=== PATIENT | female | born 1945 | race Caucasian/White ===

== ENCOUNTER 2017-10-29 12:17 | Inpatient (IN) | payer MEDICARE, OTHER ==
--- NOTE | ~2017-10-29 | CN ---
PATIENT NAME:WAYNE PARRA MEDICAL RECORD: [id number] : 41 LOCATION:[id number] ADMIT DATE: 10/29/17 ACCOUNT: [id number] CONSULTING PHYSICIAN: CHRISTIE ALBERTO MD REFERRING PHYSICIAN: MONICA MONTANO MD DATE OF CONSULTATION: 10/30/2017 CONSULT REQUESTING PHYSICIAN: Monica Montano MD REASON FOR CONSULTATION: Right hilar mass, possible postobstructive pneumonia. HISTORY OF PRESENT ILLNESS: Ms. 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 She was treated at [facility] [facility]. She has a lesion on the right side and that was biopsied negative for the cancer, but it was consistent with fungal infection. She says that she was doing well since last January. After the of her , she is progressively losing weight and getting weaker and weaker. She was admitted 2 weeks ago, in the first week of October, at [facility]. Over there, she underwent bronchoscopy and she had needle biopsy as well as BAL. The cells reported negative for any malignancy, but the cytology was sent to the [facility] for further evaluation. Now, for the last few days, she has worsening shortness of breath. She also has some fever and chill. She was feeling very weak and lethargic and the patient was brought into the ER. On evaluation, she was found that she has elevated cardiac enzymes. She has lost about 20 pounds since January last year, after the of her . She was a smoker, she quit it 2-3 weeks ago. PAST MEDICAL HISTORY: 1. 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 2. COPD. 3. Chronic backache. 4. Weight loss. REVIEW OF THE SYSTEMS: As in history of present illness. PAST SURGICAL HISTORY: Nonsignificant. ALLERGIES: There are no known drug allergies. PRESENT MEDICATIONS: She is on albuterol/ipratropium nebulizer, Levaquin IV. Her other medications are reviewed. PERSONAL AND SOCIAL HISTORY: The patient was smoking until a month ago, almost a pack a day. She is nondrinker. FAMILY HISTORY: Noncontributory. PHYSICAL EXAMINATION: GENERAL: Now, the patient is lying comfortable in bed. She is not in acute distress. VITAL SIGNS: The blood pressure is 139/76, pulse is 82, respiration is 18, temperature is 98.2, SpO2 is 95% on 4 liters nasal cannula. HEENT: Conjunctivae are pink. Sclerae not icteric. NECK: Supple. No JVD. CHEST: The chest excursion is minimal on both sides, crackles at the right CONSULT REPORT [id number] WAYNE PARRA. No wheezing. HEART: Rhythm regular. Normal sound. No murmur. ABDOMEN: Abdomen is soft. Bowel sounds present. No hepatosplenomegaly. RECTAL: Deferred. EXTREMITIES: No cyanosis. No clubbing. No pedal edema. SKIN: The skin is warm. Normal turgor. CENTRAL NERVOUS SYSTEM: The patient is awake and alert. There are no obvious cranial nerve abnormalities. The patient is very frail. The pathology report from [facility] on 10/11/2017; there are benign bronchial epithelial cells that were negative for granulomas and negative for malignancy. The report was sent for second opinion to [facility]. Chest radiograph; there is right hilar lung mass. There is consolidation of the right mid lung. There is also multifocal atypical pneumonia and possible pulmonary edema with superimposed emphysematous changes. Nodular density in both lungs. IMPRESSION: 1. Right hilar mass. 2. Acute hypoxic respiratory failure. 3. Postobstructive pneumonia, also possible pneumonitis, possible pulmonary edema with abnormal chest radiograph. 4. Generalized debility. 5. Elevated cardiac enzyme. 6. COPD with acute exacerbation. 7. Weight loss. 8. Ex-smoker. RECOMMENDATIONS: 1. We will get the final biopsy report from [facility] when they get it from [facility]. 2. Antibiotic per Dr. Batista. 3. Albuterol/ipratropium nebulizer. 4. Brovana and budesonide nebulizer. 5. Dr. Lane and Dr. Nolasco have been already consulted. Dr. Montano, thank you for involving me in the care of Ms. Parra. TRANSINT:[id number] Voice Confirmation ID: [id number] DOCUMENT ID: [id number] CHRISTIE ALBERTO MD at 1340 CC: MONICA MONTANO [id number] DICTATION DATE: 10/30/17 1736 STOCK RECEIVER: 10/30/17 1909 DIS IN 11/03/17 [facility] [address] [place] [id number]
[2017-10-29 13:20] LABS: BASOPHILS 0.2 % (0-2); EOSINOPHILS 0.5 % (0-7); HEMATOCRIT 35.6 % (36.0-48.0); HEMOGLOBIN 11.6 g/dL (12-16); IMMATURE GRANULOCYTES 0.3 % (0-5); LYMPHOCYTES 9.4 % (15-50); MCH 28.4 pg (26.0-34.0); MCHC 32.6 g/dL (31.0-37.0); MCV 87.3 fL (80.0-100.0); MEAN PLATELET VOLUME 10.2 fL (7.4-10.4); MONOCYTES 6.4 % (2-11); NEUTROPHILS 83.2 % (40-80); PLATELET COUNT 619 10x3/uL (130-400); RBC 4.08 10x6/uL (4.00-5.40); RDW 14.1 % (11.5-14.5); WBC 17.4 10x3/uL (4.8-10.8)
[2017-10-29 13:48] LABS: ALKALINE PHOSPHATASE 148 U/L (46-116); ALT (SGPT) 20 U/L (10-68); BILIRUBIN - TOTAL 0.28 mg/dL (0.2-1.3); CALC OSMOLALITY 277 mosm/kg (275-300); CALCIUM 10.2 mg/dL (8.5-10.1); CARBON DIOXIDE 30.1 mmol/L (21.0-32.0); CHLORIDE - SERUM 97 mmol/L (98-107); CREATININE - SERUM 0.6 mg/dL (0.6-1.3); GLUCOSE 124 mg/dL (74-106); POTASSIUM - SERUM 4.2 mmol/L (3.5-5.1); PROTEIN - SERUM 8.6 g/dL (6.4-8.2); SODIUM 137 mmol/L (136-145); UREA NITROGEN 22 mg/dL (7-18); eGFR NON AFRICAN AMERICAN > 90 mL/min (90-120)
[2017-10-29 14:04] LABS: PRO BNP 4011 pg/mL (0-125)
[2017-10-29 14:05] LABS: TROPONIN-I 0.185 ng/mL (0.000-0.060)
[2017-10-29 21:28] VITALS: BP 119/76
[2017-10-30 00:56] VITALS: BP 134/80
[2017-10-30 04:36] VITALS: BP 164/86
[2017-10-30 04:57] LABS: BASOPHILS 0 % (0-2); EOSINOPHILS 0 % (0-7); HEMATOCRIT 32.5 % (36.0-48.0); HEMOGLOBIN 10.2 g/dL (12-16); IMMATURE GRANULOCYTES 0.3 % (0-5); LYMPHOCYTES 9.2 % (15-50); MCH 27.1 pg (26.0-34.0); MCHC 31.4 g/dL (31.0-37.0); MCV 86.2 fL (80.0-100.0); MEAN PLATELET VOLUME 8.9 fL (7.4-10.4); MONOCYTES 3.3 % (2-11); NEUTROPHILS 87.2 % (40-80); RBC 3.77 10x6/uL (4.00-5.40); RDW 13.7 % (11.5-14.5)
[2017-10-30 05:04] LABS: PLATELET COUNT 445 10x3/uL (130-400); WBC 7.8 10x3/uL (4.8-10.8)
[2017-10-30 05:22] LABS: ALBUMIN 1.8 g/dL (3.4-5.0); ALKALINE PHOSPHATASE 130 U/L (46-116); ALT (SGPT) 18 U/L (10-68); BILIRUBIN - TOTAL 0.23 mg/dL (0.2-1.3); CALC OSMOLALITY 285 mosm/kg (275-300); CALCIUM 9.8 mg/dL (8.5-10.1); CARBON DIOXIDE 32.1 mmol/L (21.0-32.0); CHLORIDE - SERUM 99 mmol/L (98-107); CREATININE - SERUM 0.6 mg/dL (0.6-1.3); GLUCOSE 151 mg/dL (74-106); PROTEIN - SERUM 7.8 g/dL (6.4-8.2); SODIUM 140 mmol/L (136-145); UREA NITROGEN 25 mg/dL (7-18); eGFR NON AFRICAN AMERICAN > 90 mL/min (90-120)
[2017-10-30 08:21] VITALS: BP 139/76
[2017-10-30 12:24] VITALS: BP 136/68
[2017-10-30] MEDS ORDERED: HYDROCHLOROTH12.5 M1 PO (14:12)
[2017-10-30] MEDS ORDERED: MONOPRIL10 MG PO (14:12)
[2017-10-30] MEDS ORDERED: FISH OIL 1,0001 CA1 PO (14:12)
[2017-10-30] MEDS ORDERED: GLUCOTROL ER2.5 MG PO (14:13)
[2017-10-30] MEDS ORDERED: ZANTAC150 MG PO (14:13)
[2017-10-30] MEDS ORDERED: VITAMIN D250000 UNIT PO (14:14)
[2017-10-30] MEDS ORDERED: BAYER CHEWABLE81 MG PO (14:14)
[2017-10-30] MEDS ORDERED: ZOLOFT25 MG PO (14:15)
[2017-10-30] MEDS ORDERED: PROVERA2.5 MG PO (14:17)
[2017-10-30] MEDS ORDERED: PREMARIN0.3 MG PO (14:18)
[2017-10-30] MEDS ORDERED: VISION FORMULA (14:20)
[2017-10-30 14:49] VITALS: BMI 15.6
[2017-10-30 16:31] VITALS: BP 145/80
[2017-10-30 21:09] VITALS: BP 115/68
[2017-10-31 00:08] VITALS: BP 125/76
[2017-10-31 03:58] VITALS: BMI 15.0
[2017-10-31 04:54] VITALS: BP 145/75
[2017-10-31 06:27] LABS: BASOPHILS 0.1 % (0-2); EOSINOPHILS 0.2 % (0-7); HEMATOCRIT 31.8 % (36.0-48.0); HEMOGLOBIN 9.8 g/dL (12-16); IMMATURE GRANULOCYTES 0.4 % (0-5); LYMPHOCYTES 8.5 % (15-50); MCH 27.1 pg (26.0-34.0); MCHC 30.8 g/dL (31.0-37.0); MCV 87.8 fL (80.0-100.0); MEAN PLATELET VOLUME 9.2 fL (7.4-10.4); MONOCYTES 7.2 % (2-11); NEUTROPHILS 83.6 % (40-80); PLATELET COUNT 449 10x3/uL (130-400); RBC 3.62 10x6/uL (4.00-5.40); RDW 14.2 % (11.5-14.5); WBC 13.7 10x3/uL (4.8-10.8)
[2017-10-31 07:11] LABS: ALBUMIN 1.8 g/dL (3.4-5.0); ALKALINE PHOSPHATASE 119 U/L (46-116); ALT (SGPT) 18 U/L (10-68); BILIRUBIN - TOTAL 0.15 mg/dL (0.2-1.3); CALC OSMOLALITY 285 mosm/kg (275-300); CALCIUM 9.7 mg/dL (8.5-10.1); CARBON DIOXIDE 31.9 mmol/L (21.0-32.0); CHLORIDE - SERUM 103 mmol/L (98-107); CREATININE - SERUM 0.7 mg/dL (0.6-1.3); GLUCOSE 137 mg/dL (74-106); PROTEIN - SERUM 7.4 g/dL (6.4-8.2); SODIUM 141 mmol/L (136-145); UREA NITROGEN 22 mg/dL (7-18); eGFR NON AFRICAN AMERICAN 87 mL/min (90-120)
[2017-10-31 08:31] LABS: INR 1.15 (0.85-1.17); PROTIME 14.3 SECONDS (11.6-15.0)
[2017-10-31 09:51] VITALS: BP 130/75
[2017-10-31 12:40] VITALS: BP 123/72
[2017-10-31 15:22] VITALS: BP 128/82
[2017-10-31 21:43] VITALS: BP 137/78
[2017-11-01 00:25] VITALS: BP 134/80
[2017-11-01 04:40] VITALS: BP 134/60
[2017-11-01 05:22] LABS: BASOPHILS 0.1 % (0-2); EOSINOPHILS 0.5 % (0-7); HEMATOCRIT 32.1 % (36.0-48.0); HEMOGLOBIN 9.9 g/dL (12-16); IMMATURE GRANULOCYTES 0.5 % (0-5); LYMPHOCYTES 8.9 % (15-50); MCHC 30.8 g/dL (31.0-37.0); MCV 87.7 fL (80.0-100.0); MEAN PLATELET VOLUME 9.2 fL (7.4-10.4); MONOCYTES 7.5 % (2-11); NEUTROPHILS 82.5 % (40-80); PLATELET COUNT 432 10x3/uL (130-400); RBC 3.66 10x6/uL (4.00-5.40); RDW 14.2 % (11.5-14.5); WBC 14.8 10x3/uL (4.8-10.8)
[2017-11-01 05:58] LABS: ALBUMIN 1.8 g/dL (3.4-5.0); ALKALINE PHOSPHATASE 112 U/L (46-116); ALT (SGPT) 22 U/L (10-68); BILIRUBIN - TOTAL 0.26 mg/dL (0.2-1.3); CALC OSMOLALITY 279 mosm/kg (275-300); CALCIUM 9.8 mg/dL (8.5-10.1); CARBON DIOXIDE 31.7 mmol/L (21.0-32.0); CHLORIDE - SERUM 102 mmol/L (98-107); GLUCOSE 135 mg/dL (74-106); POTASSIUM - SERUM 3.8 mmol/L (3.5-5.1); PROTEIN - SERUM 7.4 g/dL (6.4-8.2); SODIUM 138 mmol/L (136-145); UREA NITROGEN 17 mg/dL (7-18)
[2017-11-01 05:59] LABS: CREATININE - SERUM 0.5 mg/dL (0.6-1.3); eGFR NON AFRICAN AMERICAN > 90 mL/min (90-120)
[2017-11-01 08:49] VITALS: BP 141/80
[2017-11-01 11:19] LABS: IMMUNOGLOBULIN A 1149 mg/dL (64-422); IMMUNOGLOBULIN M 30 mg/dL (26-217)
[2017-11-01 11:58] VITALS: BP 145/77
[2017-11-01 16:09] VITALS: BP 115/64
[2017-11-01 19:35] VITALS: BMI 15.0
[2017-11-01 22:10] VITALS: BP 130/84
[2017-11-02 00:14] VITALS: BP 135/84
[2017-11-02 05:25] LABS: BASOPHILS 0.1 % (0-2); EOSINOPHILS 0.6 % (0-7); HEMOGLOBIN 9.8 g/dL (12-16); IMMATURE GRANULOCYTES 0.3 % (0-5); LYMPHOCYTES 10.3 % (15-50); MCH 27.3 pg (26.0-34.0); MCHC 31.6 g/dL (31.0-37.0); MCV 86.4 fL (80.0-100.0); MEAN PLATELET VOLUME 8.8 fL (7.4-10.4); MONOCYTES 6.5 % (2-11); NEUTROPHILS 82.2 % (40-80); PLATELET COUNT 346 10x3/uL (130-400); RBC 3.59 10x6/uL (4.00-5.40); RDW 14.2 % (11.5-14.5)
[2017-11-02 05:51] LABS: ALBUMIN 1.7 g/dL (3.4-5.0); ALKALINE PHOSPHATASE 114 U/L (46-116); ALT (SGPT) 27 U/L (10-68); BILIRUBIN - TOTAL 0.32 mg/dL (0.2-1.3); CALC OSMOLALITY 277 mosm/kg (275-300); CALCIUM 9.5 mg/dL (8.5-10.1); CARBON DIOXIDE 31.5 mmol/L (21.0-32.0); CHLORIDE - SERUM 101 mmol/L (98-107); CREATININE - SERUM 0.6 mg/dL (0.6-1.3); GLUCOSE 141 mg/dL (74-106); POTASSIUM - SERUM 3.8 mmol/L (3.5-5.1); PROTEIN - SERUM 7.4 g/dL (6.4-8.2); SODIUM 137 mmol/L (136-145); UREA NITROGEN 17 mg/dL (7-18); eGFR NON AFRICAN AMERICAN > 90 mL/min (90-120)
[2017-11-02 06:33] VITALS: BP 120/69
[2017-11-02 08:54] VITALS: BP 125/78
[2017-11-02 10:12] LABS: CRYPTOCOCCUS AG - SERUM Negative (Negative)
[2017-11-02 12:31] VITALS: BP 115/72
[2017-11-02 16:00] VITALS: BP 112/63
[2017-11-02 22:10] VITALS: BP 136/75
[2017-11-03 01:01] VITALS: BP 108/60
[2017-11-03 05:39] VITALS: BP 118/71
[2017-11-03 06:07] LABS: BASOPHILS 0.1 % (0-2); EOSINOPHILS 1.9 % (0-7); HEMOGLOBIN 9.9 g/dL (12-16); IMMATURE GRANULOCYTES 0.3 % (0-5); LYMPHOCYTES 10.9 % (15-50); MCHC 30.9 g/dL (31.0-37.0); MCV 87.2 fL (80.0-100.0); MONOCYTES 7.5 % (2-11); NEUTROPHILS 79.3 % (40-80); PLATELET COUNT 338 10x3/uL (130-400); RBC 3.67 10x6/uL (4.00-5.40); RDW 14.4 % (11.5-14.5); WBC 13.9 10x3/uL (4.8-10.8)
[2017-11-03 06:44] LABS: ALBUMIN 1.6 g/dL (3.4-5.0); ALKALINE PHOSPHATASE 102 U/L (46-116); BILIRUBIN - TOTAL 0.34 mg/dL (0.2-1.3); CALC OSMOLALITY 281 mosm/kg (275-300); CALCIUM 9.4 mg/dL (8.5-10.1); CARBON DIOXIDE 32.2 mmol/L (21.0-32.0); CHLORIDE - SERUM 104 mmol/L (98-107); CREATININE - SERUM 0.5 mg/dL (0.6-1.3); GLUCOSE 133 mg/dL (74-106); POTASSIUM - SERUM 3.7 mmol/L (3.5-5.1); PROTEIN - SERUM 7.2 g/dL (6.4-8.2); SODIUM 140 mmol/L (136-145); UREA NITROGEN 15 mg/dL (7-18); eGFR NON AFRICAN AMERICAN > 90 mL/min (90-120)
[2017-11-03 06:49] LABS: ALT (SGPT) 36 U/L (10-68)
[2017-11-03 10:00] VITALS: BP 126/74
[2017-11-03 11:48] VITALS: BP 141/75
[2017-11-03] MEDS ORDERED: IPRAT-ALBUT 0.5-3 ML INH (12:21)
[2017-11-03] MEDS ORDERED: BROVANA15 MCG/2 M INH (12:21)
[2017-11-04 11:12] LABS: IGG SUBCLASS 1 776 mg/dL (248-810); IGG SUBCLASS 2 626 mg/dL (130-555); IGG SUBCLASS 3 102 mg/dL (15-102); IGG SUBCLASS 4 171 mg/dL (2-96)
[2017-11-04 15:19] LABS: HISTOPLASMA GAL MANNAN AG SER <0.5 (<0.5 ng/mL)
[2017-11-05 19:10] LABS: FUNGAL - ASP FLAVUS Negative (Neg:<1:1); FUNGAL - ASP NIGER Negative (Neg:<1:1); FUNGAL - ASPER FUMIGATUS Negative (Neg:<1:1)
== END 2017-11-03 13:20 | disposition home health service (06) | DRG 177 ==
LOC: D.ER 12:17 → D.MS 16:38 → D.EDHOLD 16:38 → D.MS 17:22
PROVIDERS: Emergency Medicine; Family Medicine; General Practice; Internal Medicine Pulmonary Disease; Student in an Organized Health Care Education/Training Program
PROC: 0FB23ZX Excision of Left Lobe Liver, Percutaneous Approach, Diagnostic (ICD-10-PCS; principal; 2017-10-31 10:24)
DX: J15.1 Pneumonia due to Pseudomonas (principal); J96.01 Acute respiratory failure with hypoxia; E43 Unspecified severe protein-calorie malnutrition; C78.7 Secondary malignant neoplasm of liver and intrahepatic bile duct; J44.0 Chronic obstructive pulmonary disease with (acute) lower respiratory infection; J44.1 Chronic obstructive pulmonary disease with (acute) exacerbation; Z68.1 Body mass index [BMI] 19.9 or less, adult; R91.8 Other nonspecific abnormal finding of lung field; R79.89 Other specified abnormal findings of blood chemistry; E83.52 Hypercalcemia; D72.829 Elevated white blood cell count, unspecified; Z87.891 Personal history of nicotine dependence; R54 Age-related physical debility; C80.1 Malignant (primary) neoplasm, unspecified; F41.9 Anxiety disorder, unspecified; K21.9 Gastro-esophageal reflux disease without esophagitis; I25.10 Atherosclerotic heart disease of native coronary artery without angina pectoris